=== PATIENT | male | born 1985 | race Two or more races ===

== ENCOUNTER 2024-06-14 06:48 | Emergency (ER) | payer MEDICAID ==
[~2024-06-14] VITALS: Ht 170.2 cm; Wt 72.9 kg
[2024-06-14 06:54] VITALS: TEMP 97.6
[2024-06-14 07:32] LABS: BILIRUBIN,URINE NEGATIVE (Neg); CLARITY,URINE CLEAR (Clear); COLOR,URINE STRAW (Yellow); GLUCOSE, URINE NEGATIVE (Neg); KETONES,URINE NEGATIVE (Neg); LEUKOCYTE ESTERASE ,URINE NEGATIVE (Neg); OCCULT BLOOD,URINE NEGATIVE (Neg); PROTEIN,URINE NEGATIVE (Neg); UROBILINOGEN,URINE 0.2 E.U/dL (0.2-1.0)
[2024-06-14 07:35] LABS: BASOPHILS # (AUTO) 0.1 X10'3 (0-0.2); BASOPHILS % (AUTO) 0.7 % (0-1); EOSINOPHILS # (AUTO) 0.3 X10'3 (0-0.9); EOSINOPHILS % (AUTO) 3.1 % (0-6); HEMATOCRIT 47.9 % (42.0-52.0); HEMOGLOBIN 16.2 g/dl (14.0-17.9); LYMPHOCYTES # (AUTO) 2.6 X10'3 (1.1-4.8); LYMPHOCYTES % (AUTO) 29.2 % (21-51); MEAN CORPUSCULAR HEMOGLOBIN 28.5 PG (27.0-31.0); MEAN CORPUSCULAR HGB CONC 33.9 g/dL (33.0-36.5); MEAN CORPUSCULAR VOLUME 84.3 FL (78-98); MEAN PLATELET VOLUME 9.2 FL (7.4-10.4); MONOCYTES # (AUTO) 0.7 X10'3 (0-0.9); MONOCYTES % (AUTO) 7.7 % (2-12); NEUTROPHILS # (AUTO) 5.2 X10'3 (1.8-7.7); NEUTROPHILS % (AUTO) 59.3 % (42-75); PLATELET COUNT 195 X10'3 (140-440); RED BLOOD COUNT 5.68 X10'6 (4.70-6.10); RED CELL DISTRIBUTION WIDTH 13.5 % (11.5-14.5); WHITE BLOOD COUNT 8.8 X10'3 (4.5-11.0)
--- NOTE | 2024-06-14 07:43 | Physician Documentation ---
History of Present Illness Chief Complaint: Abdominal Pain Stated Complaint: BACK PAIN Time Seen by MD: 07:19 Mode of Arrival: Ambulatory HPI 38-year-old male presenting with abdominal pain that has been gradually worsening for the past three days. He states that it has been intermittent but that it has been present more often than not. He describes the pain as sharp pain with the right side of his abdomen. He states the pain is severe and that it will not improve or worsen with anything that he does including eating. He denies any nausea, vomiting, fever, chills, constipation, diarrhea or any other associated symptoms. Medication Reconciliation Allergies: Coded Allergies: No Known Allergies (Unverified , 06/14/24) Past Medical History Past Medical History: No Pertinent History Review of Systems All Other Systems at this time: Reviewed and Negative Physical Exam Vital Signs: Temperature: 97.6, Source: Temporal, Heart Rate: 75, Respiratory Rate: 18, BP: 148/84, Pulse Oximetry: 100, Weight: 72.900 Physical Exam I have reviewed the triage vitals. CONST: Well developed and well nourished. In no acute distress HENT: Head Atraumatic EYES: Pupils are equal, round and reactive to light. Normal conjunctiva NECK: Normal range of motion. Supple. CARDIO: Normal rate and regular rhythm. No murmurs, rubs, or gallops. S1, S2. PULM/CHEST: No respiratory distress. Lungs clear to auscultation. No wheeze ABD: Soft. Tenderness to palpation over the right side of the abdomen most severe over the right lower quadrant. Nondistended. Bowel sounds normal. No guarding. : Exam deferred MSK: No edema. No deformity. NEURO: Alert and oriented to person, place and time. Moving all extremities SKIN: Warm and dry. PSYCH: Normal mood and affect. Good eye contact. Progress Results/Orders Results/Orders Orders - LINK QUINTANA MD Urinalysis, Cult If Indicated (06/14/24 06:57) Cbc/Diff (06/14/24 06:57) Amylase (06/14/24 06:57) Lipase (06/14/24 06:57) CMP (06/14/24 06:57) Troponin (Single) (06/14/24 07:30) Normal Saline 1000ml (Sodium Chloride 10 (06/14/24 07:30) Electrocardiogram (06/14/24 ) Ct Abdomen Pelvis (06/14/24 07:36) Completed Orders - LINK QUINTANA MD Morphine 4mg/Ml Inj. (Morphine Inj.) (06/14/24 07:30) Vital Signs 06/14/24 06/14/24 06:54 07:08 Temp 97.6 Pulse 75 Resp 18 18 B/P (MAP) 148/84 Pulse Ox 100 Laboratory Tests Test 06/14/24 06:59 06/14/24 07:16 Urine Comment CBC Comment Chemistry Comments EKG/XRAY/CT/US/VASC/MRI EKG : Additional Comment EKG interpreted by BERKLEY Quintana shows normal sinus rhythm at a rate of 74, normal axis, no FL intervals, no ischemia CT : Impression Exam: CT CT ABDOMEN PELVIS W/ IV CONTRAST History: abdominal pain- RLQ Comparison Study: None available at time of dictation. Contrast: Type of contrast: Omnipaque 300 Contrast injected: 100 mL Contrast wasted: 0 TECHNIQUE: CT of the abdomen pelvis performed from the lung bases to the proximal femurs. Radiation Dose Information: CT Dose: CTDI volume is 13.97 mGy. Dose-length product is 269.5 mGy*cm FINDINGS: Lung Bases: No acute or significant lung base finding. Normal heart size. No pleural or pericardial effusion. Liver: The liver is normal in size. No focal lesions. Normal hepatic vascular enhancement. Gallbladder and Biliary Tree: Unremarkable Spleen: Unremarkable Pancreas: The pancreas is normal in appearance without focal lesions or abnormal enhancement. Adrenal Glands: Unremarkable Kidneys: Kidneys demonstrate normal symmetric enhancement without focal lesions, calculi or hydronephrosis. Bladder: Unremarkable Bowel: The stomach is grossly normal in appearance. Small bowel and colon are normal in caliber and distribution. The appendix is visualized and is normal. Peritoneum: No pneumoperitoneum. No ascites. Lymphadenopathy: No mesenteric, retroperitoneal or periportal lymphadenopathy. Abdominal Wall and Mesentery: Unremarkable. Vasculature: The visualized abdominal aorta is normal in size and caliber. Abdominal and pelvic vessels demonstrate normal enhancement. Pelvic Organs: Unremarkable Musculoskeletal: No aggressive focal bony lesions, acute fractures or dislocation. Soft tissues: Unremarkable. IMPRESSION: 1. No acute abnormality in the abdomen or pelvis. All CT scans at this medical facility are performed using dose modulation techniques as appropriate to a performed exam including the following: Automated exposure control was utilized; adjustment of the MA and/or KV according to patient size; and use of iterative reconstruction technique. Ultrasound : Impression CLINICAL INFORMATION: Right upper quadrant pain. TECHNIQUE: Grayscale sonographic imaging of the abdomen was performed, assisted by color Doppler technique. COMPARISON: CT dated 06/14/2024. FINDINGS: The gallbladder wall measures 2 mm in thickness, within normal limits. No stones are seen. The common bile duct measures 3.4 mm in diameter, within normal limits. The liver is normal in size and echotexture. No focal lesions. The pancreas is partly obscured, likely by bowel gas. The visualized portions appear normal. The right kidney measures 10.5 cm. There is no hydronephrosis. Normal cortical echogenicity and cortical thickness. IMPRESSION: 1. No sonographic evidence of acute cholecystitis. 2. No acute findings are seen in the abdomen. Medical Decision Making Additional Comments 38-year-old male presenting with right-sided abdominal pain that radiates to his back. A lab workup is unremarkable. We did do CT of the abdomen and pelvis with contrast which was also completely normal with no signs of any intra- abdominal pathology. Ultrasound of the abdomen was also done and showed no signs of any intra-abdominal pathology including no gallbladder pathology. The patient was medicated with IV morphine 4 mg for his pain which significantly improved his symptoms. He was also given a L of IV normal saline. On reassessment the patient was doing much better. His exam with this point was normal. I educated the patient that we can not find a specific source of his pain at this time but that there are no acute findings found on his workup that are life-threatening. I advised him to monitor the pain closely. I will write for some symptomatic medications namely antacids and acetaminophen for pain and advised him to monitor for improvement and resolution. Advised him that he needs to follow up very closely with his primary care provider in the next 2-3 days. I additionally advised him that we can not rule out all pathology at this time and that there is a very small possibility that his pain is due to a serious issue and should his symptoms worsen that needs to immediately return to the emergency department. He expressed full understanding of the assessment and was amenable. Departure Disposition: 01 HOME / SELF CARE / HOMELESS Impression: Primary Impression: Abdominal pain Condition: Improved Discharge Instructions: Abdominal Pain (Nonspecific) Referrals: NO PRIMARY CARE PROVIDER (PCP) Prescriptions Famotidine (Pepcid AC) 20 Mg Tablet 1 TAB PO QDAY PRN PRN for heartburn for 30 Days, #30 TAB 0 Refills Prov: LINK QUINTANA MD 06/14/24 Acetaminophen (Acetaminophen) 500 Mg Tablet 1 TAB PO Q6H PRN PRN for pain or fever for 15 Days, #60 TAB Prov: LINK QUINTANA MD 06/14/24 Signature Scribe Signature: 1 Attestation: 1 LINK QUINTANA MD Jun 14, 2024 07:43
[2024-06-14 07:46] LABS: UA COLLECTION TYPE URINAL
--- NOTE | 2024-06-14 07:46 | ELECTROCARDIOGRAPH REPORT ---
[facility] Test Date: 2024-06-14 Test Time: 07:43:02 Pat Name: BRAYDEN TURNER Department: [facility] Patient [facility]: [id number] Room: Gender: M [employer]: : [id number] Requested By: LINK QUINTANA Order Number: [id number] Reading MD: Dr. Chin Gilbert Measurements Intervals [place] Rate: 74 P: 14 NM: 130 QRS: 25 QRSD: 96 T: 3 QT: 338 QTc: 375 Interpretive Statements Sinus rhythm ST elev, probable normal early repol pattern Electronically Signed On 06-14-2024 19:21:[address] Chin Gilbert Please click the below link to view image of tracing.
[2024-06-14 07:47] LABS: NITRITES, URINE NEGATIVE (Neg)
[2024-06-14] MEDS: morphine 4 MG/ML inj SYRINge IV ONE (07:56)
[2024-06-14] MEDS: normal saline 1000ml 1,000 ML IV ONE (07:57)
[2024-06-14] MEDS ORDERED: iohexol 300mg/ml 100ml inj. ONE (08:05)
[2024-06-14 08:22] LABS: ALANINE AMINOTRANSFERASE 84 U/L (12-78); BLOOD UREA NITROGEN 14 MG/DL (7-18); BUN/CREATININE RATIO 19.7 (10.0-20.0); CALCIUM 8.9 MG/DL (8.5-10.1); CHLORIDE 104 MMOL/L (99-107); CREATININE 0.71 MG/DL (0.60-1.10); POTASSIUM 4.5 MMOL/L (3.5-5.1); SODIUM 138 MMOL/L (135-145); eCRCL 134 ML/MIN; eGFR > 90 ML/MIN
[2024-06-14 08:44] LABS: ALBUMIN/GLOBULIN RATIO 1.2 (1.1-1.5); ALKALINE PHOSPHATASE 79 IU/L (46-116); AMYLASE 35 U/L (25-115); ANION GAP 6 (8-16); ASPARTATE AMINO TRANSFERASE 32 U/L (10-37); BILIRUBIN,TOTAL 0.4 MG/DL (0.1-1.0); GLUCOSE 113 MG/DL (70-104); LIPASE 26 U/L (16-77); TOTAL CARBON DIOXIDE 28.3 MMOL/L (24-32); TOTAL PROTEIN 7.3 G/DL (6.4-8.2)
--- NOTE | 2024-06-14 09:00 | RADIOLOGY REPORT ---
Exam: CT CT ABDOMEN PELVIS W/ IV CONTRAST History: abdominal pain- RLQ Comparison Study: None available at time of dictation. Contrast: Type of contrast: Omnipaque 300 Contrast injected: 100 mL Contrast wasted: 0 TECHNIQUE: CT of the abdomen pelvis performed from the lung bases to the proximal femurs. Radiation Dose Information: CT Dose: CTDI volume is 13.97 mGy. Dose-length product is 269.5 mGy*cm FINDINGS: Lung Bases: No acute or significant lung base finding. Normal heart size. No pleural or pericardial effusion. Liver: The liver is normal in size. No focal lesions. Normal hepatic vascular enhancement. Gallbladder and Biliary Tree: Unremarkable Spleen: Unremarkable Pancreas: The pancreas is normal in appearance without focal lesions or abnormal enhancement. Adrenal Glands: Unremarkable Kidneys: Kidneys demonstrate normal symmetric enhancement without focal lesions, calculi or hydroneph rosis. Bladder: Unremarkable Bowel: The stomach is grossly normal in appearance. Small bowel and colon are normal in caliber and d istribution. The appendix is visualized and is normal. Peritoneum: No pneumoperitoneum. No ascites. Lymphadenopathy: No mesenteric, retroperitoneal or periportal lymphadenopathy. Abdominal Wall and Mesentery: Unremarkable. Vasculature: The visualized abdominal aorta is normal in size and caliber. Abdominal and pelvic vess els demonstrate normal enhancement. Pelvic Organs: Unremarkable Musculoskeletal: No aggressive focal bony lesions, acute fractures or dislocation. Soft tissues: Unremarkable. IMPRESSION: 1. No acute abnormality in the abdomen or pelvis. All CT scans at this medical facility are performed using dose modulation techniques as appropriate t o a performed exam including the following: Automated exposure control was utilized; adjustment of th e MA and/or KV according to patient size; and use of iterative reconstruction technique.
--- NOTE | 2024-06-14 10:21 | RADIOLOGY REPORT ---
CLINICAL INFORMATION: Right upper quadrant pain. TECHNIQUE: Grayscale sonographic imaging of the abdomen was performed, assisted by color Doppler brissa hnique. COMPARISON: CT dated 06/14/2024. FINDINGS: The gallbladder wall measures 2 mm in thickness, within normal limits. No stones are see n. The common bile duct measures 3.4 mm in diameter, within normal limits. The liver is normal in size and echotexture. No focal lesions. The pancreas is partly obscured, likely by bowel gas. The visualized portions appear normal. The right kidney measures 10.5 cm. There is no hydronephrosis. Normal cortical echogenicity and co rtical thickness. IMPRESSION: 1. No sonographic evidence of acute cholecystitis. 2. No acute findings are seen in the abdomen.
[2024-06-14] MEDS ORDERED: FAMO20TA44 PO (10:40)
[2024-06-14] MEDS ORDERED: ACET-75 PO (10:40)
[2024-06-14 11:03] VITALS: BP 113/75; PULSE 82; RESP 16; O2SAT 97
== END 2024-06-14 11:06 | disposition home or self-care (01) ==
LOC: ER 06:49
DX: R10.31 Right lower quadrant pain (principal)
CPT/HCPCS: 36415; 74177; 76700; 80053; 81003; 82150; 83690; 84484; 85025; 93005; 96361; 96374; 99285; J2270; J7030; Q9967